=== PATIENT | female | born 1975 | race Caucasian/White ===

== ENCOUNTER 2016-05-22 11:48 | Emergency (ER) | payer MEDICARE, MEDICAID ==
[2016-05-22 13:15] VITALS: BP 156/76
--- NOTE | 2016-05-22 14:34 | UC ---
Throat Pain/Nasal Kvng HPI - HPI Summary HPI Summary: 41 year old female with complaints of nasal congestion, sinus pain, and cough x 2 weeks. Illness started with body aches and high fever. Those symptoms have resolved but nasal congestion and cough continue. Nasal discharge of thick yellow/ green - History of Current Complaint Chief Complaint: UCRespiratory Stated Complaint: COUGH CONGESTION Time Seen by Provider: 05/22/16 14:20 Hx Obtained From: Patient ?: No Onset/Duration: Gradual Onset, Lasting Weeks - 2, Still Present Severity: Moderate Cough: Nonproductive Associated Signs & Symptoms: Positive: Dysphagia - mild with coughing, Sinus Discomfort, Nasal Discharge. Negative: Drooling, Wheezing, Hoarseness, Fever, Vomiting - Epiglottits Risk Factors Epiglottis Risk Factors: Negative - Allergies/Home Medications Allergies/Adverse Reactions: Allergies Allergy/AdvReac Type Severity Reaction Status Date / Time Aripiprazole [From Abilify] Allergy See Comment Verified 05/22/16 13:14 Diazepam [From Valium] AdvReac Severe Agitation Verified 05/22/16 13:14 Home Medications: Home Medications Benztropine TAB* [Cogentin TAB*] 0.5 mg PO BID 05/22/16 [History Confirmed 05/22] Nitrofurantoin Monohyd Macro [Macrobid] 100 mg PO DAILY 05/22/16 [History Confirmed 05/22/16] PMH/Surg Hx/FS Hx/Imm Hx Previously Healthy: Yes Endocrine History Of: Denies: Diabetes, Thyroid Disease Cardiovascular History Of: Reports: Hypertension Denies: Cardiac Disorders, Pacemaker/ICD Respiratory History Of: Denies: COPD, Asthma GI/ History Of: Reports: Renal Disease - Pediatric surgery for kidney Denies: Gastroesophageal Reflux Neurological History Of: Denies: CVA, Dementia, Seizures - Surgical History Surgical History: Yes Surgery Procedure, Year, and Place: Pediatric kidney surgery, toe surgery to remove some of her toenails - Family History Known Family History: Positive: Hypertension, Diabetes - both parents - Social History Occupation: Disabled Lives: Retirement Alcohol Use: None Substance Use Type: None Smoking Status (MU): Never Smoked Tobacco Have You Smoked in the Last Year: No Review of Systems Constitutional: Fever, Chills Skin: Negative Eyes: Negative ENT: Sore Throat - mild with cough, Nasal Discharge - thick Respiratory: Cough Cardiovascular: Negative Gastrointestinal: Negative Genitourinary: Negative Motor: Negative Neurovascular: Negative Musculoskeletal: Negative Neurological: Headache Psychological: Negative All Other Systems Reviewed And Are Negative: Yes Physical Exam Triage Information Reviewed: Yes Appearance: No Pain Distress, Well-Nourished, Ill-Appearing - mildly Vital Signs: Initial Vital Signs Temp 99.3 F 05/22/16 13:10 Pulse 75 05/22/16 13:10 Resp 16 05/22/16 13:10 BP 156/76 05/22/16 13:10 Pulse Ox 100 05/22/16 13:10 Vital Signs Reviewed: Yes Eyes: Positive: Conjunctiva Clear. Negative: Discharge ENT: Positive: Pharynx normal, Nasal congestion, Nasal drainage, TMs normal, Other: - pressure with palpation over the maxillary sinus. Negative: Pharyngeal erythema Neck: Positive: Supple, Nontender, No Lymphadenopathy Respiratory: Positive: Lungs clear, Normal breath sounds. Negative: Crackles, Wheezing Cardiovascular: Positive: RRR, No Murmur Musculoskeletal: Positive: Strength Intact, ROM Intact Neurological: Positive: Alert, Muscle Tone Normal Psychological: Positive: Age Appropriate Behavior - pleasant and cooperative Skin: Negative: rashes, breakdown Throat Pain/Nasal Course/Dx - Differential Dx/Diagnosis Differential Diagnosis/HQI/PQRI: Pharyngitis, URI Provider Diagnoses: Sinusitis Discharge - Discharge Plan Condition: Stable Disposition: HOME Prescriptions: Amoxicillin/Clavulanate TAB* [Augmentin TAB 875*] 875 mg PO BID #20 tab Patient Education Materials: Sinusitis (ED), Acute Bronchitis (ED) Referrals: Richard Hemphill MD [Primary Care Provider] - 1 Week (if not improving)
== END 2016-05-22 14:42 | disposition home or self-care (01) ==
LOC: UCCORT 11:48
DX: J32.0 Chronic maxillary sinusitis (principal); R50.9 Fever, unspecified; R05 Cough; I10 Essential (primary) hypertension; N28.89 Other specified disorders of kidney and ureter; Z88.8 Allergy status to other drugs, medicaments and biological substances
CPT/HCPCS: 99202; G0463